=== PATIENT | male | born 1980 | race Caucasian/White ===

== ENCOUNTER 2019-05-17 21:13 | Emergency (ER) | payer OTHER ==
[~2019-05-17] VITALS: Ht 177.8 cm; Wt 93.4 kg
[2019-05-17 21:40] LABS: BASO # 0.1 x10^3/uL (0.0-0.2); BASO % 1 % (0-3); EOS # 0.1 x10^3/uL (0.0-0.7); EOS % 1 % (0-3); HEMATOCRIT 48.8 % (39.0-53.0); HEMOGLOBIN 17.1 g/dL (13.0-17.5); LYMPH # 1.9 x10^3/uL (1.0-4.8); LYMPH % 20 % (24-48); MEAN CORPUSCULAR HEMOGLOBIN 30 pg (25-35); MEAN CORPUSCULAR HGB CONC 35 g/dL (31-37); MEAN CORPUSCULAR VOLUME 87 fL (79-100); MONO # 0.6 x10^3/uL (0.0-1.1); MONO % 7 % (0-9); NEUT # 6.6 x10^3/uL (1.8-7.7); NEUT % 72 % (31-73); PLATELET COUNT 328 x10^3/uL (140-400); RED BLOOD COUNT 5.61 x10^6/uL (4.30-5.70); RED CELL DISTRIBUTION WIDTH 12.8 % (11.5-14.5); WHITE BLOOD COUNT 9.2 x10^3/uL (4.0-11.0)
[2019-05-17] MEDS ORDERED: FAMOTIDINE 20 MG/2 ML VIAL IVP ONE (21:45)
[2019-05-17] MEDS ORDERED: CONTRAST GIVEN. MC PRN (21:45)
[2019-05-17] MEDS ORDERED: IV NORMAL SALINE 1000ML BAG 1,000 ML IV ONE (21:45)
[2019-05-17] MEDS ORDERED: ONDANSETRON PF 4 MG/2 ML VIAL. IV ONE (21:45)
[2019-05-17] MEDS ORDERED: KETOROLAC 15 MG/ML VIAL. IVP ONE (21:45)
[2019-05-17] MEDS ORDERED: IOHEXOL 350 MG/ML 100 ML VIAL. IV ONE (21:45)
[2019-05-17 21:51] LABS: BILIRUBIN,URINE NEGATIVE (NEG); CLARITY,URINE CLEAR; COLOR,URINE YELLOW; NITRITE,URINE NEGATIVE (NEG); PH,URINE 6.5; PROTEIN,URINE NEGATIVE (NEG-TRACE); UROBILINOGEN,URINE 0.2 mg/dL (0.2 mg/dL)
[2019-05-17 21:58] LABS: CALCIUM 9.6 mg/dL (8.5-10.1); GFR 84.5; POTASSIUM 4.1 mmol/L (3.5-5.1)
[2019-05-17 21:58] LABS: BACTERIA,URINE 0 /HPF (0-FEW); BARBITURATES NEG (NEG); BENZODIAZEPINES NEG (NEG); CANNABINOIDS NEG (NEG); COCAINE NEG (NEG); METHADONE NEG (NEG); OPIATES NEG (NEG); PHENCYCLIDINE NEG (NEG); RBC,URINE 0 /HPF (0-2); SQUAMOUS EPITHELIAL CELL,UR FEW /LPF; WBC,URINE 0 /HPF (0-4)
[2019-05-17 21:59] LABS: AMPHETAMINE/METHAMPHETAMINE NEG (NEG)
[2019-05-17 22:03] LABS: ALBUMIN/GLOBULIN RATIO 1.5 (1.0-1.7); TOTAL BILIRUBIN 0.5 mg/dL (0.2-1.0); TOTAL PROTEIN 8.4 g/dL (6.4-8.2)
[2019-05-17 22:12] LABS: CREATINE KINASE 140 U/L (39-308)
--- NOTE | 2019-05-17 23:17 | RAD ---
CTA of the chest, abdomen and pelvis without and with contrast 05/17/2019 CLINICAL HISTORY: Chest and abdominal pain. Hypertension. TECHNIQUE: Unenhanced, contiguous, 2 mm axial sections were obtained through the chest, abdomen and pelvis. After the intravenous administration of 100 cc of Omnipaque 350 only, contiguous, 0.625 mm axial sections were obtained through the chest, abdomen and pelvis. Multiplanar 3-D MIP and volume rendered 3-D reconstructed images were obtained. One or more of the following individualized dose reduction techniques were utilized for this study: 1. Automated exposure control. 2. Adjustment of the mA and/or kV according to patient size. 3. Use of iterative reconstruction technique. FINDINGS: The unenhanced images demonstrate calcified left hilar and mediastinal lymph nodes. A 7 mm calcified granuloma is seen involving the left lower lobe. No renal or ureteral calculus is seen. On the postcontrast images the thoracic aorta tapers normally. No aneurysm is seen. There is no evidence of an aortic dissection. The origins of the brachiocephalic, left common carotid and left subclavian arteries from the thoracic aortic arch are within normal limits. No filling defect is seen within the major branches of either pulmonary artery. There is no definite CT evidence of pulmonary embolism. Minimal dependent subsegmental atelectasis is seen involving both lungs. No area of consolidation is seen. No pneumothorax or pleural effusion is noted. The liver parenchyma has a decreased attenuation consistent with fatty infiltration. The spleen, pancreas, adrenal glands and kidneys are within normal limits. Surgical clips are seen within the gallbladder fossa consistent with a cholecystectomy. No free fluid or free air is patent. Air and stool are seen throughout the colon. The appendix is well-visualized and is within normal limits. Images through pelvis demonstrate the urinary bladder distended with urine. No free fluid is seen. Calcifications are seen within the pelvis consistent with phleboliths. CTA images of the abdomen and pelvis demonstrate the abdominal aorta to taper normally. The origins of the superior mesenteric artery and inferior mesenteric artery are within normal limits. Focal narrowing of the origin of the celiac trunk is seen. This measures 3 mm in length. It does not appear to be acute. Solitary renal arteries are seen bilaterally. These are patent. The common iliac arteries and their branches are within normal limits. No area of stenosis or occlusion is seen. No aneurysm is noted. Degenerative changes are seen involving the lower thoracic and mid and lower lumbar spine. IMPRESSION: No acute abnormality is seen. Electronically signed by: Jaun Motley MD (05/17/2019 11:15 PM) [facility]
[2019-05-17] MEDS ORDERED: HYOS0.1265 SL (23:37)
[2019-05-17] MEDS ORDERED: FAMO-63 PO (23:37)
--- NOTE | 2019-05-17 23:38 | PHYS DOC ---
Past Medical History Past Medical History: High Cholesterol, Hypertension, Kidney Stone, Migraines Additional Past Medical Histor: 'NERVE PAIN' Alcohol Use: None Drug Use: None Adult General Chief Complaint Chief Complaint: ABDOMINAL PAIN HPI HPI Patient is a 38 year old [f__sex] who presents with [] Review of Systems Review of Systems Constitutional: Denies fever or chills [] Eyes: Denies change in visual acuity, redness, or eye pain [] HENT: Denies nasal congestion or sore throat [] Respiratory: Denies cough or shortness of breath [] Cardiovascular: No additional information not addressed in HPI [] GI: Denies abdominal pain, nausea, vomiting, bloody stools or diarrhea [] : Denies dysuria or hematuria [] Musculoskeletal: Denies back pain or joint pain [] Integument: Denies rash or skin lesions [] Neurologic: Denies headache, focal weakness or sensory changes [] Endocrine: Denies polyuria or polydipsia [] All other systems were reviewed and found to be within normal limits, except as documented in this note. Current Medications Current Medications Current Medications Medications (Trade) Dose Ordered Sig/Timothy Start Time Stop Time Status Last Admin Dose Admin Famotidine (Pepcid Vial) 20 mg 1X ONCE 05/17/19 21:45 05/17/19 21:46 DC 05/17/19 21:48 20 MG Info (CONTRAST GIVEN -- Rx MONITORING) 1 each PRN DAILY PRN 05/17/19 21:45 05/19/19 21:44 Iohexol (Omnipaque 350 Mg/ml) 100 ml 1X ONCE 05/17/19 21:45 05/17/19 21:46 DC 05/17/19 22:25 100 ML Ketorolac Tromethamine (Toradol 15mg Vial) 15 mg 1X ONCE 05/17/19 21:45 05/17/19 21:46 DC 05/17/19 21:49 15 MG Ondansetron HCl (Zofran) 4 mg 1X ONCE 05/17/19 21:45 05/17/19 21:46 DC 05/17/19 21:49 4 MG Sodium Chloride 1,000 ml @ 1,000 mls/hr 1X ONCE 05/17/19 21:45 05/17/19 22:44 DC 05/17/19 21:48 1,000 MLS/HR Allergies Allergies Allergies Coded Allergies Type Severity Reaction Last Updated Verified Penicillins Allergy Unknown 05/17/19 Yes morphine Allergy Unknown 05/17/19 Yes Physical Exam Physical Exam Constitutional: Well developed, well nourished, no acute distress, non-toxic appearance. [] HENT: Normocephalic, atraumatic, bilateral external ears normal, oropharynx moist, no oral exudates, nose normal. [] Eyes: PERRLA, EOMI, conjunctiva normal, no discharge. [] Neck: Normal range of motion, no tenderness, supple, no stridor. [] Cardiovascular:Heart rate regular rhythm, no murmur [] Lungs & Thorax: Bilateral breath sounds clear to auscultation [] Abdomen: Bowel sounds normal, soft, no tenderness, no masses, no pulsatile masses. [] Skin: Warm, dry, no erythema, no rash. [] Back: No tenderness, no CVA tenderness. [] Extremities: No tenderness, no cyanosis, no clubbing, ROM intact, no edema. [] Neurologic: Alert and oriented X 3, normal motor function, normal sensory function, no focal deficits noted. [] Psychologic: Affect normal, judgement normal, mood normal. [] Current Patient Data Vital Signs Vital Signs Date Time Temp Pulse Resp B/P (MAP) Pulse Ox O2 Delivery O2 Flow Rate FiO2 05/17/19 23:00 90 21 148/82 (104) 97 Room Air 05/17/19 21:13 97.4 97.4 Lab Values Laboratory Tests Test 05/17/19 21:22 05/17/19 21:30 White Blood Count 9.2 x10^3/uL (4.0-11.0) Red Blood Count 5.61 x10^6/uL (4.30-5.70) Hemoglobin 17.1 g/dL (13.0-17.5) Hematocrit 48.8 % (39.0-53.0) Mean Corpuscular Volume 87 fL (79-100) Mean Corpuscular Hemoglobin 30 pg (25-35) Mean Corpuscular Hemoglobin Concent 35 g/dL (31-37) Red Cell Distribution Width 12.8 % (11.5-14.5) Platelet Count 328 x10^3/uL (140-400) Neutrophils (%) (Auto) 72 % (31-73) Lymphocytes (%) (Auto) 20 % (24-48) L Monocytes (%) (Auto) 7 % (0-9) Eosinophils (%) (Auto) 1 % (0-3) Basophils (%) (Auto) 1 % (0-3) Neutrophils # (Auto) 6.6 x10^3/uL (1.8-7.7) Lymphocytes # (Auto) 1.9 x10^3/uL (1.0-4.8) Monocytes # (Auto) 0.6 x10^3/uL (0.0-1.1) Eosinophils # (Auto) 0.1 x10^3/uL (0.0-0.7) Basophils # (Auto) 0.1 x10^3/uL (0.0-0.2) Sodium Level 141 mmol/L (136-145) Potassium Level 4.1 mmol/L (3.5-5.1) Chloride Level 101 mmol/L (98-107) Carbon Dioxide Level 26 mmol/L (21-32) Anion Gap 14 (6-14) Blood Urea Nitrogen 10 mg/dL (8-26) Creatinine 1.0 mg/dL (0.7-1.3) Estimated GFR (Cockcroft-Gault) 84.5 BUN/Creatinine Ratio 10 (6-20) Glucose Level 97 mg/dL (70-99) Lactic Acid Level 1.1 mmol/L (0.4-2.0) Calcium Level 9.6 mg/dL (8.5-10.1) Magnesium Level 1.9 mg/dL (1.8-2.4) Total Bilirubin 0.5 mg/dL (0.2-1.0) Aspartate Amino Transferase (AST) 18 U/L (15-37) Alanine Aminotransferase (ALT) 16 U/L (16-63) Alkaline Phosphatase 55 U/L (46-116) Creatine Kinase 140 U/L (39-308) Creatine Kinase MB (Mass) < 0.5 ng/mL (0.0-3.6) Creatine Kinase MB Relative Index % (0-4) Troponin I Quantitative < 0.017 ng/mL (0.000-0.055) Total Protein 8.4 g/dL (6.4-8.2) H Albumin 5.0 g/dL (3.4-5.0) Albumin/Globulin Ratio 1.5 (1.0-1.7) Lipase 109 U/L (73-393) Urine Collection Type Unknown Urine Color Yellow Urine Clarity Clear Urine pH 6.5 Urine Specific [place] <=1.005 Urine Protein Negative mg/dL (NEG-TRACE) Urine Glucose (UA) Negative mg/dL (NEG) Urine Ketones (Stick) Negative mg/dL (NEG) Urine Blood Negative (NEG) Urine Nitrite Negative (NEG) Urine Bilirubin Negative (NEG) Urine Urobilinogen Dipstick 0.2 mg/dL (0.2 mg/dL) Urine Leukocyte Esterase Negative (NEG) Urine RBC 0 /HPF (0-2) Urine WBC 0 /HPF (0-4) Urine Squamous Epithelial Cells Few /LPF Urine Bacteria 0 /HPF (0-FEW) Urine Opiates Screen Neg (NEG) Urine Methadone Screen Neg (NEG) Urine Barbiturates Neg (NEG) Urine Phencyclidine Screen Neg (NEG) Urine Amphetamine/Methamphetamine Neg (NEG) Urine Benzodiazepines Screen Neg (NEG) Urine Cocaine Screen Neg (NEG) Urine Cannabinoids Screen Neg (NEG) Urine Ethyl Alcohol Neg (NEG) Laboratory Tests 05/17/19 21:22 Laboratory Tests 05/17/19 21:22 EKG EKG @2126 NSR at 74bpm, NO ST elevation, QRS 82ms, QT/QTc 360/400ms Radiology/Procedures Radiology/Procedures PROCEDURE: CT ANGIO CHEST ABD PELVIS CTA of the chest, abdomen and pelvis without and with contrast 05/17/2019 CLINICAL HISTORY: Chest and abdominal pain. Hypertension. TECHNIQUE: Unenhanced, contiguous, 2 mm axial sections were obtained through the chest, abdomen and pelvis. After the intravenous administration of 100 cc of Omnipaque 350 only, contiguous, 0.625 mm axial sections were obtained through the chest, abdomen and pelvis. Multiplanar 3-D MIP and volume rendered 3-D reconstructed images were obtained. One or more of the following individualized dose reduction techniques were utilized for this study: 1. Automated exposure control. 2. Adjustment of the mA and/or kV according to patient size. 3. Use of iterative reconstruction technique. FINDINGS: The unenhanced images demonstrate calcified left hilar and mediastinal lymph nodes. A 7 mm calcified granuloma is seen involving the left lower lobe. No renal or ureteral calculus is seen. On the postcontrast images the thoracic aorta tapers normally. No aneurysm is seen. There is no evidence of an aortic dissection. The origins of the brachiocephalic, left common carotid and left subclavian arteries from the thoracic aortic arch are within normal limits. No filling defect is seen within the major branches of either pulmonary artery. There is no definite CT evidence of pulmonary embolism. Minimal dependent subsegmental atelectasis is seen involving both lungs. No area of consolidation is seen. No pneumothorax or pleural effusion is noted. The liver parenchyma has a decreased attenuation consistent with fatty infiltration. The spleen, pancreas, adrenal glands and kidneys are within normal limits. Surgical clips are seen within the gallbladder fossa consistent with a cholecystectomy. No free fluid or free air is patent. Air and stool are seen throughout the colon. The appendix is well-visualized and is within normal limits. Images through pelvis demonstrate the urinary bladder distended with urine. No free fluid is seen. Calcifications are seen within the pelvis consistent with phleboliths. CTA images of the abdomen and pelvis demonstrate the abdominal aorta to taper normally. The origins of the superior mesenteric artery and inferior mesenteric artery are within normal limits. Focal narrowing of the origin of the celiac trunk is seen. This measures 3 mm in length. It does not appear to be acute. Solitary renal arteries are seen bilaterally. These are patent. The common iliac arteries and their branches are within normal limits. No area of stenosis or occlusion is seen. No aneurysm is noted. Degenerative changes are seen involving the lower thoracic and mid and lower lumbar spine. IMPRESSION: No acute abnormality is seen. Electronically signed by: Jaun Tate MD (05/17/2019 11:15 PM) [employer] DICTATED and SIGNED BY: JAUN TATE MD DATE: 05/17/19 6573 Course & Med Decision Making Course & Med Decision Making Pertinent Labs and Imaging studies reviewed. (See chart for details) [] Dragon Disclaimer Dragon Disclaimer This electronic medical record was generated, in whole or in part, using a voice recognition dictation system. Departure Departure Impression: Primary Impression: Abdominal pain Disposition: 01 HOME, SELF-CARE Condition: STABLE Referrals: NO PCP (PCP) KEVEN ALDANA MD Patient Instructions: Abdominal Pain (Nonspecific), Gastritis, Adult, [id number] Scripts Hyoscyamine Sulfate (LEVSIN-SL) 0.125 Mg Tab.subl 0.125 MG SL Q6HRS PRN for PAIN, #20 TAB Prov: TOM DOWD DO 05/17/19 Famotidine (PEPCID) 20 Mg Tablet 20 MG PO BID, #20 TAB Prov: TOM DOWD DO 05/17/19 Problem Qualifiers Primary Impression: Abdominal pain Abdominal location: unspecified location Qualified Codes: R10.9 - Unspecified abdominal pain TOM DOWD DO May 17, 2019 23:38
[2019-05-17] MEDS ORDERED: LIDO:MAALOX 1:1 20 ML SINGLE DOSE. ONE (23:39)
[2019-05-17] MEDS ORDERED: LIDO:MAALOX 1:1 20 ML SINGLE DOSE. PO ONE (23:45)
[2019-05-18] VITALS: BP 136/83
--- NOTE | 2019-05-18 10:35 | EKG ---
[facility] [address] [place] [address] Test Date: 2019-05-17 Test Time: 21:26:48 Pat Name: SERA HEMPHILL Department: Room: Gender: M [employer] Att[employer]: : 1980 Requested By: TOM DOWD Order Number: [id number] Reading MD: Measurements Intervals [place] Rate: 74 P: 36 ME: 160 QRS: 8 QRSD: 82 T: 37 QT: 360 QTc: 400 Interpretive Statements SINUS RHYTHM NORMAL ECG RI6.01 No previous ECG available for comparison
== END 2019-05-18 | disposition home or self-care (01) ==
LOC: ER 21:13 → EEVIPCON 21:13 → ER 05-18
DX: R10.13 Epigastric pain (principal); E78.00 Pure hypercholesterolemia, unspecified; I10 Essential (primary) hypertension; G43.909 Migraine, unspecified, not intractable, without status migrainosus; Z87.442 Personal history of urinary calculi; Z88.0 Allergy status to penicillin; Z88.5 Allergy status to narcotic agent
CPT/HCPCS: 36415; 71275; 74174; 80053; 80307; 81001; 82553; 83605; 83690; 83735; 84484; 85025; 93005; 96374; 96375; 99285; J1885; J2405; J3490; J7030; Q9967